=== PATIENT | male | born 1970 | race Two or more races ===

== ENCOUNTER 2019-10-30 13:28 | Emergency (ER) | payer OTHER ==
--- NOTE | 2019-10-30 14:01 | ER Document Report ---
ED Medical Screen (RME) - General Chief Complaint: Psych Problem Stated Complaint: FEET PROBLEM/POSSIBLE PSYCH EVAL Time Seen by Provider: 10/30/19 13:59 Mode of Arrival: Ambulatory Information source: Patient Notes: 48-year-old male presented to ED for unknown problem. He was rambling throughout his whole conversation. He was not able to follow instructions. He did become aggravated when asked a specific question. I have consulted Rhett and she is speaking with the patient. She recommended starting IVC protocol. I have greeted and performed a rapid initial assessment of this patient. A comprehensive ED assessment and evaluation of the patient, analysis of test results and completion of medical decision making process will be conducted by an additional ED providers. - Related Data Home Medications: Pt denies any medications or any PMH. Physical Exam - Vital signs Vitals: Temp Pulse Resp BP Pulse Ox 98.6 F 110 H 16 158/82 H 97 10/30/19 13:33 10/30/19 13:33 10/30/19 13:33 10/30/19 13:33 10/30/19 13:33 Course - Vital Signs Vital signs: Temp Pulse Resp BP Pulse Ox 98.6 F 110 H 16 158/82 H 97 10/30/19 13:33 10/30/19 13:33 10/30/19 13:33 10/30/19 13:33 10/30/19 13:33
--- NOTE | 2019-10-30 14:10 | PSYCHOLOGICAL NOTE ---
Psych Note - Psych Note Date seen by psych provider: 10/30/19 Time seen by psych provider: 13:59 Psych Note: Reason for Consult: odd presentation Clinician is asked to see patient in PIT due to his odd presentation. Patient is noted to be rambling to attending nurse upon arrival to room. Patient engages with clinician however is very difficult to follow and many times he does not answer questions asked. Patient is unable to articulate why he came to [facility] ED, he provided multiple answers to include, fungus on his feet, needing his toe nail removed because "that is the cause of the problem" as he is pointing to the heel of his foot, he is unable to live with his mother, she doesn't want him, he is not safe, he is constipated, there is "black air," etc. Patient presents disheveled in flip flops, shorts and tshirt but overall mostly clean (his feet are noted to be dirty but not inflamed or with sores; he identifies walking many miles to [facility] ED). Patient mentions his brother is his payee and he flew here from [place]. It is unclear how long ago he moved to the local area. Patient is a but [facility]because [facility]'t [facility] concerns...they say its my head." Patient then appears to switch topics, talking about a childhood friend from when he was 3 or 4 that was disable. He denies mental health diagnosis, substance abuse, or taking any medications. He reports he "got sick" when serving in [place]. Impression/Plan: Patient is recommended for IVC; paperwork is signed, faxed to cargo supervisor and placed in patient's chart. Patient presents with abnormal thought processes that is overall tangential with times that are loose with illogical shifts in topic that cannot be followed. Patient is unable to clearly articulate why he came to the emergency department but states he needs his toe nail removed because "that is the cause of the problem" as he points to his heel. Patient has slightly pressured speech and fair to poor eye contact. He continues to discuss not being able to return home. If is difficult to follow; however. it seems he identifies his mother and "black air" as reasons he is not "safe." Due to patient's current presentation, there is significant concern and reasonable probability that without care, supervision, and the continued assistance of others not otherwise available, to exercise self-control, judgment, and discretion in the conduct of daily responsibilities and social relations or to satisfy the need for nourishment, personal or medical care, longterm, or self-protection and safety. Dr. Quiros was consulted on the care and management of this patient; attending physician is in agreement with recommendations and disposition.
[2019-10-30 14:25] LABS: ABSOLUTE BASOPHILS # (AUTO) 0.1 10^3/uL (0.0-0.2); ABSOLUTE LYMPHOCYTES (AUTO) 1.4 10^3/uL (0.5-4.7); ABSOLUTE MONOCYTES (AUTO) 0.4 10^3/uL (0.1-1.4); ABSOLUTE NEUT (AUTO) 5.8 10^3/uL (1.7-8.2); BASOPHILS % (AUTO) 0.7 % (0-2); EOSINOPHILS % (AUTO) 0.6 % (0-6); HEMATOCRIT 41.9 % (37.9-51.0); HEMOGLOBIN 14.6 g/dL (13.5-17.0); LYMPHOCYTES % (AUTO) 18.7 % (13-45); MEAN CORPUSCULAR HEMOGLOBIN 32.2 pg (27.0-33.4); MEAN CORPUSCULAR HGB CONC 34.8 g/dL (32.0-36.0); MEAN CORPUSCULAR VOLUME 93 fl (80-97); MONOCYTES % (AUTO) 4.7 % (3-13); PLATELET COUNT 301 10^3/uL (150-450); RED BLOOD COUNT 4.53 10^6/uL (4.35-5.55); SEGMENTED NEUTROPHILS % (AUTO) 75.3 % (42-78); TOTAL CELLS COUNTED % (AUTO) 100 %; WHITE BLOOD COUNT 7.7 10^3/uL (4.0-10.5)
[2019-10-30 14:32] LABS: APPEARANCE,URINE CLEAR; BILIRUBIN,URINE NEGATIVE (NEGATIVE); COLOR,URINE YELLOW; GLUCOSE, URINE NEGATIVE (NEGATIVE); KETONES,URINE TRACE mg/dL (NEGATIVE); LEUKOCYTE ESTERASE,URINE NEGATIVE (NEGATIVE); NITRITE,URINE NEGATIVE (NEGATIVE); PROTEIN,URINE NEGATIVE (NEGATIVE); URINE SPECIFIC GRAVITY 1.025; UROBILINOGEN,URINE NEGATIVE mg/dL (<2.0)
[2019-10-30 14:44] LABS: URINE AMPHETAMINES SCREEN NEGATIVE; URINE BARBITURATES SCREEN NEGATIVE; URINE BENZODIAZEPINES SCREEN NEGATIVE; URINE COCAINE SCREEN NEGATIVE; URINE MARIJUANA (THC) SCREEN NEGATIVE; URINE METHADONE SCREEN NEGATIVE; URINE PHENCYCLIDINE SCREEN NEGATIVE
[2019-10-30 14:46] LABS: ACETAMINOPHEN < 10 ug/mL (10-30); ALBUMIN 4.3 g/dL (3.5-5.0); ALCOHOL < 10 mg/dL (NONE DETECTED); ALKALINE PHOSPHATASE 76 U/L (38-126); ANION GAP 5 (5-19); ASPARTATE AMINO TRANSFERASE 26 U/L (17-59); BILIRUBIN,TOTAL 0.4 mg/dL (0.2-1.3); BLOOD UREA NITROGEN 14 mg/dL (7-20); CARBON DIOXIDE 28 mmol/L (22-30); CHLORIDE 104 mmol/L (98-107); GLUCOSE 103 mg/dL (75-110); POTASSIUM 3.8 mmol/L (3.6-5.0); SALICYLATE < 1.0 mg/dL (2.0-20.0); TOTAL PROTEIN 6.9 g/dL (6.3-8.2)
[2019-10-30] MEDS ORDERED: ACETAMINOPHEN 325 MG TABLET PO ONE (15:41)
--- NOTE | 2019-10-30 15:47 | ER Document Report ---
ED Psych Disorder / Suicide - General Chief Complaint: Psych Problem Stated Complaint: FEET PROBLEM/POSSIBLE PSYCH EVAL Time Seen by Provider: 10/30/19 13:59 Mode of Arrival: Ambulatory Information source: Patient - HPI Patient complains to provider of: Bizarre behavior Quality of pain: Achy - low bacl pain Notes: Patient is a 48-year-old male presenting to the emergency department today. He reports to me that he has low back pain that is been present for the last few days. He denies any specific injury. Denies any bowel or urinary incontinence or any urinary retention. Apparently patient was not making a whole lot of sense to the triage provider and the nurse which initiated a mental health work- up. Please see their notes. Patient denies any suicidal or homicidal ideation to this provider. - Related Data Home Medications: Pt denies any medications or any PMH. Past Medical History - General Information source: Patient - Social History Smoking Status: Unknown if Ever Smoked Family History: Other - unable to obtain Patient has homicidal ideation: No - Medical History Medical History: Other - unable to obtain Surgical Hx: Other - unable to obtain Review of Systems - Review of Systems -: Yes ROS unobtainable due to patient's medical condition - Unable to obtain as patient only reports back pain, flight of ideas Physical Exam - Vital signs Vitals: Temp Pulse Resp BP Pulse Ox 98.6 F 110 H 16 158/82 H 97 10/30/19 13:33 10/30/19 13:33 10/30/19 13:33 10/30/19 13:33 10/30/19 13:33 - Notes Notes: PHYSICAL EXAMINATION: GENERAL: Well-appearing, well-nourished and in no acute distress. HEAD: Atraumatic, normocephalic. EYES: Pupils equal round and reactive to light, extraocular movements intact, sclera anicteric, conjunctiva are normal. ENT: Nares patent, oropharynx clear without exudates. Moist mucous membranes. NECK: Normal range of motion, supple without lymphadenopathy LUNGS: Breath sounds clear to auscultation bilaterally and equal. No wheezes rales or rhonchi. HEART: Regular rate and rhythm without murmurs ABDOMEN: Soft, nontender, nondistended abdomen. No guarding, no rebound. No masses appreciated. Musculoskeletal: Normal range of motion, no pitting or edema. No cyanosis. NEUROLOGICAL: Cranial nerves grossly intact. Normal speech, normal gait. Normal sensory, motor exams PSYCH: Flight of ideas. SKIN: Warm, Dry, normal turgor, no rashes or lesions noted. Course - Re-evaluation Re-evalutation: 10/30/19 19:49 Patient's medical work-up today has been unremarkable. His EKG shows a sinus rhythm, normal axis, no ectopy noted, no ST segment elevations or depressions. Patient cleared from a medical standpoint, pending mental health evaluation and disposition. - Vital Signs Vital signs: Temp Pulse Resp BP Pulse Ox 98.6 F 110 H 16 158/82 H 97 10/30/19 13:33 10/30/19 13:33 10/30/19 13:33 10/30/19 13:33 10/30/19 13:33 - Laboratory Result Diagrams: 10/30/19 14:05 10/30/19 14:05 Laboratory results interpreted by me: 10/30/19 10/30/19 14:05 14:17 Urine Ketones TRACE H Salicylates < 1.0 L Acetaminophen < 10 L Discharge - Discharge Clinical Impression: Schizoaffective disorder Qualifiers: Schizoaffective disorder type: unspecified Qualified Code(s): F25.9 - Schiz oaffective disorder, unspecified Condition: Stable Disposition: PSYCH HOSP/UNIT
--- NOTE | 2019-10-30 17:48 | EKG REPORT ---
SEVERITY:- BORDERLINE ECG - SINUS RHYTHM PROBABLE LEFT ATRIAL ABNORMALITY : Confirmed by: Tiana Penn MD 30-Oct-2019 17:47:56
[2019-10-30] MEDS: BENZTROPINE MESYLATE 1 MG TABLET PO SCH (20:06)
[2019-10-30] MEDS: OLANZAPINE 5 MG TABLET PO SCH (20:06)
[2019-10-31] MEDS: OLANZAPINE 5 MG TABLET PO SCH ×2 (10:43→18:49)
[2019-10-31] MEDS: BENZTROPINE MESYLATE 1 MG TABLET PO SCH (10:43)
--- NOTE | 2019-10-31 15:52 | ER Document Report ---
Doctor's Note Notes: 10/31/19 15:52 Patient sleeping at this time. Patient is awaiting placement in a mental health facility and is awaiting transfer at this time. 10/31/19 18:44 PHYSICAL EXAMINATION: GENERAL: Well-appearing and in no acute distress. HEAD: Atraumatic, normocephalic. EYES: sclera anicteric, conjunctiva are normal. ENT: nares patent. Moist mucous membranes. NECK: Normal range of motion, supple without lymphadenopathy LUNGS: CTAB and equal. No wheezes rales or rhonchi. HEART: Regular rate and rhythm without murmurs EXTREMITIES: Normal range of motion BACK: No CVA tenderness NEUROLOGICAL: Cranial nerves grossly intact. Normal speech. PSYCH: Normal mood, normal affect. SKIN: Warm, Dry, normal turgor, no rashes or lesions noted
[2019-10-31] MEDS ORDERED: MAGNESIUM HYDROXIDE SUSP 30 ML UDCUP PO ONE (18:44)
[2019-10-31] MEDS: MAGNESIUM HYDROXIDE SUSP 30 ML UDCUP PO ONE ×2 (18:49→19:07)
--- NOTE | 2019-10-31 22:59 | PSYCHOLOGICAL NOTE ---
Psych Note - Psych Note Date seen by psych provider: 10/31/19 Time seen by psych provider: 12:20 Psych Note: Reason for Consult: odd presentation Check in conducted with patient: No new concerns noted for patient. Patient is calm and has been medication compliant. Continued concerns for confusion and paranoia. Patient's paperwork has been submitted for review to the PA in both [facility] for possible placement. Medication recommendations per [facility]'s contracted psychiatrist Dr. Dillon CHANCE are as follows: Zyprexa 5mg twice daily Cogentin 1mg daily Impression\plan: Patient is recommended to continue under IVC. Due to patient's continued presentation, there is significant concern and reasonable probability that without care, supervision, and the continued assistance of others not otherwise available, to exercise self-control, judgment, and discretion in the conduct of daily responsibilities and social relations or to satisfy the need for nourishment, personal or medical care, senior living, or self-protection and safety. Dr. Quiros was consulted on the care and management of this patient; attending physician is in agreement with recommendations and disposition.
[2019-11-01] MEDS ORDERED: POLYETHYLENE GLYCOL 3350 POWDER 17 GM/1 PACKET PO ONE (04:42)
[2019-11-01] MEDS: BENZTROPINE MESYLATE 1 MG TABLET PO SCH (09:54)
[2019-11-01] MEDS: OLANZAPINE 5 MG TABLET PO SCH (09:54)
[2019-11-01] MEDS ORDERED: HALOPERIDOL 5 MG TABLET PO ONE (14:52)
--- NOTE | 2019-11-01 14:54 | ER Document Report ---
Doctor's Note Notes: 11/01/19 14:53 Constitutional: Nontoxic appearance, no acute distress Eyes: Nonicteric, extraocular movements intact, sclera clear Cardiovascular: No JVD Respiratory: Nonlabored breathing, no use of accessory muscles, no tachypnea Gastrointestinal: Abdomen not distended Muculoskeletal: Moves all extremities well, normal gait Skin: Normal color Neuro: Awake alert oriented, normal speech Psych: Normal mood, cooperative with staff Mental health team advises discontinuing Zyprexa and given a single dose of Haldol orally. Will observe patient to make sure he does not have any adverse reaction to the Haldol medication in anticipation of him receiving Haldol Decanoate injection prior to discharge. 11/01/19 16:04 Patient without any adverse reaction to the Haldol at this time. No concern for anaphylaxis. Will add the Haldol Decanoate. Mental health team anticipates discharge. Patient otherwise medically clear for discharge or transfer pending mental health plan of care. 11/01/19 18:12 Patient no longer meets IVC criteria per mental health team. Patient's IVC order has been rescinded. Patient is agreeable with discharge plan of care at this time.
[2019-11-01] MEDS ORDERED: HALOPERIDOL DECANOATE INJ 100 MG/1 ML VIAL IM ONE (16:04)
[2019-11-01 18:31] VITALS: BP 136/63
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
== END 2019-11-01 18:45 | disposition home or self-care (01) ==
LOC: ER 13:28
DX: F25.9 Schizoaffective disorder, unspecified (principal); M54.5 Low back pain
CPT/HCPCS: 93005; 99285; 96372; 36415; 80307 ×4; 85025; 80053; 81001; 93010; J1631; J3490

== ENCOUNTER 2020-04-24 14:43 | Emergency (ER) | payer OTHER ==
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
[2020-04-24 15:09] LABS: ABSOLUTE BASOPHILS # (AUTO) 0.1 10^3/uL (0.0-0.2); ABSOLUTE EOSINOPHILS # (AUTO) 0.1 10^3/uL (0.0-0.6); ABSOLUTE LYMPHOCYTES (AUTO) 1.3 10^3/uL (0.5-4.7); ABSOLUTE MONOCYTES (AUTO) 0.4 10^3/uL (0.1-1.4); ABSOLUTE NEUT (AUTO) 5.8 10^3/uL (1.7-8.2); BASOPHILS % (AUTO) 0.8 % (0-2); EOSINOPHILS % (AUTO) 1.1 % (0-6); HEMATOCRIT 41.3 % (37.9-51.0); HEMOGLOBIN 14.2 g/dL (13.5-17.0); LYMPHOCYTES % (AUTO) 16.7 % (13-45); MEAN CORPUSCULAR HEMOGLOBIN 32.2 pg (27.0-33.4); MEAN CORPUSCULAR HGB CONC 34.5 g/dL (32.0-36.0); MEAN CORPUSCULAR VOLUME 94 fl (80-97); MONOCYTES % (AUTO) 5.5 % (3-13); PLATELET COUNT 264 10^3/uL (150-450); RED BLOOD COUNT 4.42 10^6/uL (4.35-5.55); RED CELL DISTRIBUTION WIDTH 12.7 % (11.5-14.0); SEGMENTED NEUTROPHILS % (AUTO) 75.9 % (42-78); TOTAL CELLS COUNTED % (AUTO) 100 %; WHITE BLOOD COUNT 7.6 10^3/uL (4.0-10.5)
[2020-04-24 15:30] LABS: ALBUMIN 3.3 g/dL (3.5-5.0); ALKALINE PHOSPHATASE 64 U/L (38-126); ANION GAP 6 (5-19); ASPARTATE AMINO TRANSFERASE 17 U/L (17-59); BILIRUBIN,DIRECT 0.2 mg/dL (0.0-0.4); BILIRUBIN,TOTAL 0.5 mg/dL (0.2-1.3); BLOOD UREA NITROGEN 10 mg/dL (7-20); CARBON DIOXIDE 26 mmol/L (22-30); CHLORIDE 106 mmol/L (98-107); GLUCOSE 103 mg/dL (75-110); POTASSIUM 3.8 mmol/L (3.6-5.0); TOTAL PROTEIN 5.5 g/dL (6.3-8.2)
[2020-04-24] MEDS ORDERED: HALOPERIDOL DECANOATE INJ 100 MG/1 ML VIAL IM ONE (15:30)
[2020-04-24 15:32] LABS: ACETAMINOPHEN < 10 ug/mL (10-30); ALCOHOL < 10 mg/dL (NONE DETECTED); SALICYLATE < 1.0 mg/dL (2.0-20.0)
[2020-04-24] MEDS ORDERED: SILVER SULFADIAZINE 1% CREAM 25 GM TP ONE (15:52)
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
[2020-04-24] MEDS: BENZTROPINE MESYLATE 1 MG TABLET PO SCH (16:07)
[2020-04-24] MEDS: HALOPERIDOL 5 MG TABLET PO SCH (18:51)
--- NOTE | 2020-04-24 19:15 | EKG REPORT ---
SEVERITY:- BORDERLINE ECG - SINUS RHYTHM PROBABLE LEFT ATRIAL ABNORMALITY : Confirmed by: Juan Diego Capellan MD 24-Apr-2020 19:15:18
[2020-04-24 21:26] LABS: APPEARANCE,URINE CLEAR; BILIRUBIN,URINE NEGATIVE (NEGATIVE); COLOR,URINE YELLOW; GLUCOSE, URINE NEGATIVE (NEGATIVE); KETONES,URINE NEGATIVE (NEGATIVE); LEUKOCYTE ESTERASE,URINE NEGATIVE (NEGATIVE); NITRITE,URINE NEGATIVE (NEGATIVE); PROTEIN,URINE NEGATIVE (NEGATIVE); URINE SPECIFIC GRAVITY 1.011; UROBILINOGEN,URINE NEGATIVE mg/dL (<2.0)
[2020-04-24 21:51] LABS: URINE AMPHETAMINES SCREEN NEGATIVE; URINE BARBITURATES SCREEN NEGATIVE; URINE BENZODIAZEPINES SCREEN NEGATIVE; URINE COCAINE SCREEN NEGATIVE; URINE MARIJUANA (THC) SCREEN NEGATIVE; URINE METHADONE SCREEN NEGATIVE; URINE PHENCYCLIDINE SCREEN NEGATIVE
[2020-04-24] MEDS ORDERED: LORAZEPAM INJ 2 MG/1 ML VIAL IM ONE (22:18)
[2020-04-24] MEDS ORDERED: DIPHENHYDRAMINE HCL 50 MG/ML VIAL IM ONE (22:18)
[2020-04-25] MEDS: BENZTROPINE MESYLATE 1 MG TABLET PO SCH (09:27)
[2020-04-25] MEDS: HALOPERIDOL 5 MG TABLET PO SCH ×2 (09:27→17:21)
--- NOTE | 2020-04-25 17:31 | ER Document Report ---
Doctor's Note Notes: 04/25/20 17:30 PHYSICAL EXAMINATION: GENERAL: Appears well, healthy, well-nourished, no acute distress. PSYCH: Normal mood, normal affect. I went to evaluate the patient and he was standing in the doorway of his room. He denied any suicidal or homicidal ideation. I asked him if I can assess him and he told me know that I could not to listen to his heart and lungs. He asked me, "already want to do that?" I told him that it was my job to listen to his heart and lungs and he did not want me to. No new recommendations from mental health at this time.
[2020-04-26] MEDS: HALOPERIDOL 5 MG TABLET PO SCH ×2 (09:42→17:43)
[2020-04-26] MEDS: BENZTROPINE MESYLATE 1 MG TABLET PO SCH (09:42)
--- NOTE | 2020-04-26 17:09 | ER Document Report ---
Doctor's Note Notes: 04/26/20 17:08 Patient in no distress at this time resting quietly in the room of discussed with the psychiatric team patient's Covid test is negative they are attempting to find placement at the [facility]
[2020-04-27] MEDS: BENZTROPINE MESYLATE 1 MG TABLET PO SCH (10:01)
[2020-04-27] MEDS: HALOPERIDOL 5 MG TABLET PO SCH (10:01)
[2020-04-27] MEDS ORDERED: SILVER SULFADIAZINE 1% CREAM 25 GM TP ONE (13:33)
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
[2020-04-27 15:09] VITALS: BP 128/70
== END 2020-04-27 15:44 ==
LOC: ER 14:43
DX: F23 Brief psychotic disorder (principal); F25.9 Schizoaffective disorder, unspecified; Z79.899 Other long term (current) drug therapy; T23.211A Burn of second degree of right thumb (nail), initial encounter; X08.8XXA Exposure to other specified smoke, fire and flames, initial encounter; Y93.89 Activity, other specified; Z20.828 Contact with and (suspected) exposure to other viral communicable diseases
CPT/HCPCS: 93005; 99285; 96372; 36415; 80307 ×4; 85025; 87635; 80053; 81001; 93010; J1631; J1200; J2060; C9803